=== PATIENT | female | born 1960 | race Caucasian/White ===

== ENCOUNTER → 2022-11-09 | Outpatient (CLI) | payer SELFPAY ==
--- NOTE | 2022-11-09 16:05 | RAD_ITS ---
EXAM: XR LEFT KNEE COMPLETE, 4 OR MORE VIEWS CLINICAL INDICATION: KNEE SPRAIN TECHNIQUE: Four or more views of the left knee. This report was created using [employer] report generation technology. COMPARISON: None. FINDINGS: BONES/JOINTS: There is a suprapatellar joint effusion. No acute fracture. No subluxation. Normal alignment. No sclerotic or destructive changes observed. SOFT TISSUES: Unremarkable. No soft tissue swelling or gas. No radiopaque foreign body. RAD/Knee 4 or More Views IMPRESSION: No acute osseous abnormalities. There is a small suprapatellar joint effusion. Electronically Signed: Jamaal Singh MD at 0:09 EST ,
== END | disposition home or self-care (01) ==
PROVIDERS: Referring Provider Chiropractor Orthopedic; Visit Provider Chiropractor Orthopedic
DX: S83.90XA Sprain of unspecified site of unspecified knee, initial encounter (principal); M25.469 Effusion, unspecified knee
CPT/HCPCS: 73564